=== PATIENT | female | born 1970 | race Caucasian/White ===

== ENCOUNTER → 2017-11-28 | Outpatient (CLI) | payer BC ==
[~2017-11-28] MED LIST: FLEXERIL PO; NORCO 5-325 TA1 EACH PO
== END ==
LOC: M.RAD 15:56
DX: Z12.31 Encounter for screening mammogram for malignant neoplasm of breast (principal)

== ENCOUNTER 2019-07-20 01:13 | Emergency (ER) | payer BC ==
[~2019-07-20] VITALS: Ht 154.9 cm; Wt 58.1 kg
[2019-07-20 02:20] LABS: HEMATOCRIT 33.6 % (37.0-47.0); HEMOGLOBIN 10.9 gm/dL (12.0-15.0); MCH 24.1 pg (26.0-34.0); MCHC 32.4 g/dL (28.0-37.0); MCV 74.3 fL (80.0-100.0); MPV 9.4 fl. (7.2-11.1); NUCLEATED RBCS 0 /100WBC; PLATELET COUNT* 236 thou/uL (150-400); RBC 4.52 mil/uL (4.20-5.00); RDW-CV 17.4 % (10.5-14.5); WBC 17.4 thou/uL (4.0-11.0)
[2019-07-20 02:32] LABS: URINE BILIRUBIN NEGATIVE (Negative); URINE BLOOD NEGATIVE (Negative); URINE CLARITY CLEAR; URINE COLOR YELLOW; URINE GLUCOSE-RANDOM NEGATIVE (Negative); URINE KETONES NEGATIVE (Negative); URINE LEUKOCYTES-REFLEX NEGATIVE (Negative); URINE NITRITE-REFLEX NEGATIVE (Negative); URINE PROTEIN NEGATIVE (Negative); URINE SPECIFIC GRAVITY 1.015 (1.005-1.030); URINE UROBILINOGEN 0.2 E.U./dl (0.2-1.0)
[2019-07-20 02:34] LABS: CALCIUM 8.4 mg/dL (8.5-10.1); CREATININE 0.9 mg/dL (0.6-1.3); POTASSIUM 3.8 mmol/L (3.5-5.1)
[2019-07-20 02:38] LABS: ALBUMIN 3.6 g/dL (3.4-5.0); TOTAL BILIRUBIN 0.4 mg/dL (<0.1-1.0); TOTAL PROTEIN 7.3 g/dL (6.4-8.2)
[2019-07-20] MEDS ORDERED: TORADOL 10 MG T10 MG PO (04:29)
[2019-07-20] MEDS ORDERED: ZOFRAN ODT4 MG PO (04:29)
[2019-07-20] MEDS ORDERED: HYDROCODON-ACE1 EAC7 PO (04:29)
[2019-07-20 04:44] VITALS: BP 135/79
[2019-07-20 06:05] LABS: ABSOLUTE LYMPHOCYTES 0.3 thou/uL (0.8-5.3); PLATELET ESTIMATE ADEQUATE
== END 2019-07-20 04:44 | disposition home or self-care (01) ==
LOC: M.ERS 01:13
PROVIDERS: Personal Emergency Response Attendant
DX: N23 Unspecified renal colic (principal); R11.2 Nausea with vomiting, unspecified

== ENCOUNTER → 2021-01-06 | Outpatient (CLI) | payer BC ==
[~2021-01-06] MED LIST changes: +HYDROCODON-ACE1 EAC7 PO; +TORADOL 10 MG T10 MG PO; +ZOFRAN ODT4 MG PO
== END ==
LOC: M.RAD 11:44
PROVIDERS: ATTEND Nurse Practitioner Family
DX: Z12.31 Encounter for screening mammogram for malignant neoplasm of breast (principal)